=== PATIENT | female | born 1975 | race American Indian/Alaskan Native ===

== ENCOUNTER 2018-11-27 23:26 | Emergency (ER) | payer MEDICAID ==
[2018-11-27 23:41] VITALS: BP 125/73
--- NOTE | 2018-11-28 00:40 | XRay Report ---
RIGHT KNEE 3 VIEW(S) INDICATION / CLINICAL INFORMATION: knee pain and swelling COMPARISON: None available. FINDINGS: BONES / JOINT(S): No acute fracture or subluxation. No significant arthritis. No significant joint ef fusion. SOFT TISSUES: No significant abnormality. ADDITIONAL FINDINGS: None. Signer Name: Al Brewer MD Signed: 11/28/2018 12:36 AM Workstation Name: [id number]
[2018-11-28] MEDS ORDERED: oxyCODONE /ACETAMINOPHEN 5-325MG TAB PO STA (01:12)
[2018-11-28] MEDS ORDERED: KETOROLAC 60 MG/2 ML INJ IM STA (01:12)
--- NOTE | 2018-11-28 01:45 | Emergency Department Report ---
ED Lower Extremity HPI - General Chief Complaint: Extremity Injury, Lower Stated Complaint: RT KNEE PAIN Time Seen by Provider: 11/28/18 00:48 Source: patient Mode of arrival: Wheelchair Limitations: No Limitations - History of Present Illness Initial Comments: 43-year-old -[place] female presents much department complaining of pain to the right knee with some reported swelling. About a week and half ago, she was kneeling for excessive amount of time and when she got up she noticed some pain and swelling to the top of her knee Which slowly began to improve while walking upstairs in high heels. She lost her balance, stumbling, but not involving causing more pain to the same knee was began to be worse with flexion and prolonged standing. No numbness or tingling. No broken skin MD Complaint: knee injury -: Gradual Injury: Knee: Right Type of Injury: blunt Place: home Severity: moderate Worsens With: movement, palpation Associated Symptoms: able to partially bear weight - Related Data Previous Rx's Medication Instructions Recorded Last Taken Type Ketorolac [Toradol] 10 mg PO Q6H PRN #15 tablet 11/28/18 Unknown Rx traMADol [Ultram] 50 mg PO Q6HR PRN #20 tablet 11/28/18 Unknown Rx Allergies Allergy/AdvReac Type Severity Reaction Status Date / Time hydromorphone [From Dilaudid] AdvReac Unknown Verified 11/27/18 23:36 morphine AdvReac Unknown Verified 11/27/18 23:36 ED Review of Systems ROS: Stated complaint: RT KNEE PAIN Other details as noted in HPI Comment: All other systems reviewed and negative ED Past Medical Hx - Past Medical History Previous Medical History?: No - Surgical History Past Surgical History?: Yes Hx Cholecystectomy: Yes Additional Surgical History: csection. tonsil. pins to left ankle - Social History Smoking Status: Never Smoker Substance Use Type: None - Medications Home Medications: Home Medications Medication Instructions Recorded Confirmed Last Taken Type Ketorolac [Toradol] 10 mg PO Q6H PRN #15 tablet 11/28/18 Unknown Rx traMADol [Ultram] 50 mg PO Q6HR PRN #20 tablet 11/28/18 Unknown Rx ED Physical Exam - General Limitations: No Limitations General appearance: alert, in no apparent distress - Head Head exam: Present: atraumatic, normocephalic - Eye Eye exam: Present: normal appearance, PERRL, EOMI Pupils: Present: normal accommodation - ENT ENT exam: Present: normal exam, normal orophraynx, mucous membranes moist, TM's normal bilaterally - Neck Neck exam: Present: normal inspection - Respiratory Respiratory exam: Present: normal lung sounds bilaterally. Absent: respiratory distress, wheezes, rales, accessory muscle use, decreased breath sounds, prolonged expiratory - Cardiovascular Cardiovascular Exam: Present: regular rate, normal rhythm. Absent: systolic murmur, diastolic murmur, rubs, gallop - GI/Abdominal GI/Abdominal exam: Present: soft, normal bowel sounds - Extremities Exam Extremities exam: Present: normal inspection, full ROM, tenderness (some tenderness to the right patellar region with palpation and some swelling to the prepatellar bursa sac region. Some tenderness with Gary's tests and to the lateral aspect of the knee with increased Varus), normal capillary refill - Back Exam Back exam: Present: normal inspection, full ROM. Absent: CVA tenderness (R), CVA tenderness (L) - Neurological Exam Neurological exam: Present: alert, oriented X3, CN II-XII intact - Psychiatric Psychiatric exam: Present: normal affect, normal mood - Skin Skin exam: Present: warm, dry, intact, normal color. Absent: rash ED Course Vital Signs 11/27/18 23:40 Temperature 98.4 F Pulse Rate 73 Respiratory 18 Rate Blood Pressure 125/73 [Right] O2 Sat by Pulse 98 Oximetry ED Lower Extremity MDM - Radiology Data Radiology results: report reviewed - Medical Decision Making 43-year-old -[place] female stumbled near fall or step, causing pain to the right knee. This was preceded by a previous fall with blunt trauma to the knee with swelling. Critical care attestation.: If time is entered above; I have spent that time in minutes in the direct care of this critically ill patient, excluding procedure time. ED Disposition Clinical Impression: Knee pain, Prepatellar bursitis Disposition: TO HOME OR SELFCARE Is pt being admited?: No Does the pt Need Aspirin: No Condition: Stable Instructions: Arthralgia (ED), Knee Bursitis (ED) Referrals: HARMONY BRIAN MD [Primary Care Provider] - 3-5 Days ZEESHAN AHMADI MD [Staff Physician] - 3-5 Days (Please be sure to follow-up with Dr. Ahmadi for further evaluation of her knee involving MRI and further evaluation of the bursa sac.)
== END 2018-11-28 03:11 | disposition home or self-care (01) ==
LOC: ED 23:26
DX: M70.41 Prepatellar bursitis, right knee (principal); Z88.5 Allergy status to narcotic agent; Z90.49 Acquired absence of other specified parts of digestive tract; Z79.899 Other long term (current) drug therapy
CPT/HCPCS: 73562; 99284; J1885